=== PATIENT | female | born 1970 | race African-American/Black ===

== ENCOUNTER 2019-11-13 06:08 | Emergency (ER) | payer OTHER ==
[~2019-11-13] VITALS: Ht 170.2 cm; Wt 75.3 kg
[2019-11-13 06:30] VITALS: BP_SYST 136
--- NOTE | 2019-11-13 06:32 | NUR ---
Patient to ER bed 7 to gown for evaluation. Side rails up.
--- NOTE | 2019-11-13 06:40 | NUR ---
Dr. Ogden bedside for pt eval
--- NOTE | 2019-11-13 06:43 | NUR ---
Pt BIB family to ED C/O left shoulder pain since . Denies injury/trauma/fall. No other complaints and or injuries noted VSS no s/s of acute distress Resting on gurney rails up
[2019-11-13] MEDS ORDERED: KETOROLAC TROMETHAMINE 60 MG/2 ML VIAL IM ONE (06:45)
--- NOTE | 2019-11-13 07:07 | NUR ---
Assumed care of patient, currently resting in bed, will continue to monitor.
--- NOTE | 2019-11-13 07:16 | NUR ---
EKG performed at bedside by RN, given to MD for interpretation
--- NOTE | 2019-11-13 07:34 | NUR ---
Radiology at bedside for shoulder x-ray as ordered by
--- NOTE | 2019-11-13 08:17 | NUR ---
Blood for labwork drawn from [facility]. Patient tolerated well. Sent to lab
[2019-11-13 08:22] LABS: BASOPHILS % (AUTO) 0.7 % (0.0-2.0); EOSINOPHILS # (AUTO) 0.1 K/uL (0.0-0.4); EOSINOPHILS % (AUTO) 2.4 % (0.0-4.0); HEMATOCRIT 39.4 % (36-48); LYMPHOCYTES # (AUTO) 1.6 K/uL (1.0-5.5); LYMPHOCYTES % (AUTO) 27.9 % (20.5-51.5); MEAN CORPUSCULAR HEMOGLOBIN 31 pg (27-31); MEAN CORPUSCULAR HGB CONC 33 % (32-36); MEAN CORPUSCULAR VOLUME 93 fL (79.0-98.0); MONOCYTES # (AUTO) 0.5 K/uL (0.0-1.0); MONOCYTES % (AUTO) 9.7 % (1.7-9.3); NEUTROPHILS # (AUTO) 3.4 K/uL (1.8-7.7); NEUTROPHILS % (AUTO) 59.3 % (40.0-70.0); PLATELET COUNT (AUTO) 213 K/uL (130-430); RED BLOOD CELL COUNT(AUTO) 4.25 MIL/uL (4.2-6.2); RED CELL DISTRIBUTION WIDTH 13.7 % (9.0-15.0); WHITE BLOOD COUNT (AUTO) 5.7 K/uL (4.8-10.8)
[2019-11-13 08:32] LABS: ANION GAP 5 (5-15); CALCIUM 8.9 mg/dL (8.4-11.0); CHLORIDE 102 mmol/L (98-107); CREATININE 0.69 mg/dL (0.55-1.30); GLUCOSE 145 mg/dL (70-99); POTASSIUM 3.6 mmol/L (3.5-5.1); SODIUM SERUM 139 mmol/L (136-145); UREA NITROGEN, BLOOD 12 mg/dL (8-21)
[2019-11-13 08:36] LABS: GFR AFRICAN AMERICAN 115 mL/min (>90)
[2019-11-13 08:40] LABS: ALANINE AMINOTRANSFERASE 44 U/L (12-78); ALBUMIN 3.5 g/dL (3.4-4.8); ASPARTATE AMINOTRANSFERASE 20 U/L (10-37); TOTAL BILIRUBIN 0.7 mg/dL (0.0-1.0)
[2019-11-13 09:10] VITALS: BP_SYST 140
--- NOTE | 2019-11-13 09:10 | NUR ---
Patient given written and verbal discharge instructions and verbalizes understanding. ER MD discussed with patient the results and treatment provided. Patient in stable condition. ID arm band removed. Rx of Motrin given. Patient educated on pain management and to follow up with PMD. Pain Scale 3. Opportunity for questions provided and answered. Medication side effect fact sheet provided.
== END 2019-11-13 09:10 | disposition home or self-care (01) ==
LOC: SED 06:08
DX: M75.32 Calcific tendinitis of left shoulder (principal); I10 Essential (primary) hypertension; E11.9 Type 2 diabetes mellitus without complications
CPT/HCPCS: 36415; 73030; 80053; 84484; 85025; 93005; 96372; 99285; J1885

== ENCOUNTER 2019-12-09 08:33 | Outpatient (CLI) | payer OTHER | END 2019-12-09 21:11 | disposition home or self-care (01) | LOC: SUS 08:33 | PROVIDERS: ATTEND Internal Medicine | DX: E04.9 Nontoxic goiter, unspecified (principal); R10.9 Unspecified abdominal pain | CPT/HCPCS: 76536-TC; 76700-TC ==

== ENCOUNTER 2020-06-15 20:29 | Emergency (ER) | payer OTHER ==
[~2020-06-15] VITALS: Ht 170.2 cm; Wt 76.7 kg
--- NOTE | 2020-06-15 20:40 | NUR ---
LISA Sharif at bedside examining patient.
[2020-06-15 20:47] VITALS: BP_SYST 182
--- NOTE | 2020-06-15 20:57 | NUR ---
Patient to ER FAST TRACK for evaluation. Report given to ROMEO Jeter
--- NOTE | 2020-06-15 21:10 | NUR ---
ER Dr. CORTES at bedside examining patient.
--- NOTE | 2020-06-15 21:12 | NUR ---
pt a&o x4 from home c/o of bug bite underneath right eye that appeared 2 days ago. area around bug bite is swollen and tender to the touch. pt took tylenol this AM. will continue to monitor.
[2020-06-15] MEDS ORDERED: cloNIDine HCL 0.1 MG TABLET PO ONE (21:15)
[2020-06-15] MEDS ORDERED: cefTRIAXone 1 GM in LIDOCAINE 1%, 20 ML MDV 2.1 ML IM ONE (21:15)
--- NOTE | 2020-06-15 21:38 | NUR ---
PATIENT MEDICATED PER MD ORDER. PT TOLERATED WELL.
[2020-06-15 22:06] VITALS: BP_SYST 167
--- NOTE | 2020-06-15 22:06 | NUR ---
Patient given written and verbal discharge instructions and verbalizes understanding. ER MD discussed with patient the results and treatment provided. Patient in stable condition. ID arm band removed. Rx of keflex and bactroban given. Patient educated on pain management and to follow up with PMD. Pain Scale 0/10. Opportunity for questions provided and answered. Medication side effect fact sheet provided.
== END 2020-06-15 22:06 | disposition home or self-care (01) ==
LOC: SED 20:29
DX: H00.032 Abscess of right lower eyelid (principal); I10 Essential (primary) hypertension; E11.9 Type 2 diabetes mellitus without complications; Z88.1 Allergy status to other antibiotic agents; Z88.8 Allergy status to other drugs, medicaments and biological substances
CPT/HCPCS: 96372; 99283; J0696; J2001

== ENCOUNTER 2020-08-08 07:54 | Emergency (ER) | payer OTHER ==
[~2020-08-08] VITALS: Ht 170.2 cm; Wt 73.9 kg
[2020-08-08 08:10] VITALS: BP_SYST 163
[2020-08-08] MEDS: hydrALAZINE HCL 20 MG/ML VIAL IVP ONE ×2 (08:39→09:20)
[2020-08-08] MEDS: KETOROLAC TROMETHAMINE 30 MG VIAL IVP ONE (08:40)
[2020-08-08 08:57] LABS: ANION GAP 6 (5-15); CALCIUM 8.8 mg/dL (8.4-11.0); CHLORIDE 103 mmol/L (98-107); CREATININE 0.72 mg/dL (0.55-1.30); GLUCOSE 167 mg/dL (70-99); POTASSIUM 3.9 mmol/L (3.5-5.1); SODIUM SERUM 138 mmol/L (136-145); UREA NITROGEN, BLOOD 10 mg/dL (8-21)
[2020-08-08 08:58] LABS: GFR AFRICAN AMERICAN 110 mL/min (>90)
[2020-08-08 09:05] LABS: BILIRUBIN,URINE NEGATIVE (NEGATIVE); BLOOD, URINE NEGATIVE (NEGATIVE); CLARITY/URINE CLEAR (CLEAR); COLOR,URINE YELLOW (YELLOW); GLUCOSE,URINE NEGATIVE (NEGATIVE); KETONES,URINE NEGATIVE (NEGATIVE); LEUKOCYTE ESTERASE ,URINE NEGATIVE (NEGATIVE); NITRITE, URINE NEGATIVE (NEGATIVE); PH,URINE 6.5 (5.0-8.0); PROTEIN URINE NEGATIVE (NEGATIVE); UROBILINOGEN,URINE 0.2 (0.2-1.0)
[2020-08-08 09:05] LABS: ALANINE AMINOTRANSFERASE 40 U/L (12-78); ALBUMIN 3.6 g/dL (3.4-4.8); ASPARTATE AMINOTRANSFERASE 25 U/L (10-37); TOTAL BILIRUBIN 0.4 mg/dL (0.0-1.0)
[2020-08-08 10:19] LABS: BASOPHILS % (AUTO) 0.6 % (0.0-2.0); EOSINOPHILS # (AUTO) 0.1 K/uL (0.0-0.4); HEMATOCRIT 38.2 % (36-48); HEMOGLOBIN 12.8 g/dL (12.0-16.0); LYMPHOCYTES # (AUTO) 1.4 K/uL (1.0-5.5); LYMPHOCYTES % (AUTO) 48.1 % (20.5-51.5); MEAN CORPUSCULAR HEMOGLOBIN 31 pg (27-31); MEAN CORPUSCULAR HGB CONC 34 % (32-36); MEAN CORPUSCULAR VOLUME 92 fL (79.0-98.0); MONOCYTES # (AUTO) 0.4 K/uL (0.0-1.0); MONOCYTES % (AUTO) 12.1 % (1.7-9.3); NEUTROPHILS % (AUTO) 35.2 % (40.0-70.0); PLATELET COUNT (AUTO) 226 K/uL (130-430); RED BLOOD CELL COUNT(AUTO) 4.16 MIL/uL (4.2-6.2); RED CELL DISTRIBUTION WIDTH 13.2 % (9.0-15.0)
[2020-08-08 10:20] LABS: WHITE BLOOD COUNT (AUTO) 2.9 K/uL (4.8-10.8)
[2020-08-08] MEDS ORDERED: HYDR-4038 PO (10:37)
[2020-08-08 11:08] VITALS: BP_SYST 135
== END 2020-08-08 11:09 | disposition home or self-care (01) ==
LOC: SED 07:54
DX: I10 Essential (primary) hypertension (principal); E11.9 Type 2 diabetes mellitus without complications; Z88.1 Allergy status to other antibiotic agents; Z88.8 Allergy status to other drugs, medicaments and biological substances
CPT/HCPCS: 36415; 80053; 81003; 84484; 85025; 96374; 96375; 96376; 99284

== ENCOUNTER 2020-08-08 16:45 | Emergency (ER) | payer OTHER ==
[~2020-08-08] VITALS: Ht 185.4 cm; Wt 83.9 kg
[~2020-08-08 16:45] MED LIST: HYDR-4038 PO
[2020-08-08 16:58] VITALS: BP_SYST 157
[2020-08-08] MEDS: ACETAMINOPHEN 325 MG TABLET PO ONE (17:39)
[2020-08-08 18:49] VITALS: BP_SYST 153
== END 2020-08-08 18:49 | disposition home or self-care (01) ==
LOC: SED 16:45
DX: I10 Essential (primary) hypertension (principal); R51.9 Headache, unspecified; J45.909 Unspecified asthma, uncomplicated; E11.9 Type 2 diabetes mellitus without complications; Z86.73 Personal history of transient ischemic attack (TIA), and cerebral infarction without residual deficits; Z88.8 Allergy status to other drugs, medicaments and biological substances; Z88.1 Allergy status to other antibiotic agents
CPT/HCPCS: 70450-TC; 76376; 99284